=== PATIENT | male | born 1940 | race Caucasian/White ===

== ENCOUNTER 2017-11-07 11:21 | Emergency (ER) | payer OTHER ==
[~2017-11-07] VITALS: Ht 165.1 cm; Wt 96.2 kg
[2017-11-07] MEDS ORDERED: FORTAMET1000 MG (12:22)
[2017-11-07] MEDS ORDERED: CYMBALTA60 MG (12:22)
[2017-11-07] MEDS ORDERED: DILTIAZEM 24HR120 MG (12:22)
[2017-11-07] MEDS ORDERED: DICLOFENAC POTA50 MG (12:23)
[2017-11-07] MEDS ORDERED: CARBIDOPA-LEVO1 EA10 (12:23)
== END 2017-11-07 14:50 | disposition home or self-care (01) ==
LOC: ER 11:21
DX: B34.9 Viral infection, unspecified (principal); E11.65 Type 2 diabetes mellitus with hyperglycemia; J11.1 Influenza due to unidentified influenza virus with other respiratory manifestations